=== PATIENT | female | born 1990 | race Caucasian/White ===

== ENCOUNTER 2017-01-28 17:55 | Emergency (ER) | payer MEDICAID ==
[~2017-01-28] VITALS: Ht 162.6 cm; Wt 65.0 kg
[~2017-01-28 17:55] MED LIST: AMOXICILLIN500 MG OR; AMOXICILLIN500 MG PO; CEPHALEXIN500 MG OR; CIPRO500 MG OR; FERROUS SULF325 M1 PO; IBUPROFEN600 MG PO; METRONIDAZOL500 MG PO; NO; NO HOME MEDS; PERI-COLACE1 TAB PO; PRE-NATAL PO; SPRINTEC 2828 DAY OR; SPRINTEC 2828 DAY PO; TUMS500 MG PO; ULTRAM50 M1 PO; ZOFRAN ODT4 MG PO
[2017-01-28] MEDS ORDERED: GENTAMICIN15 ML/BTL OU (18:48)
[2017-01-28] MEDS ORDERED: AMOXICILLIN500 MG PO (18:48)
[2017-01-28 18:55] VITALS: BP 118/72
[2017-01-28 19:17] LABS: INFLUENZA A NONE DETECTED (NONE DETECT); INFLUENZA B NONE DETECTED (NONE DETECT)
== END 2017-01-28 18:55 | disposition home or self-care (01) | DRG 153 ==
LOC: ED 17:55
PROVIDERS: Emergency Medicine
DX: J02.0 Streptococcal pharyngitis (principal); H10.9 Unspecified conjunctivitis; M79.1 Myalgia

== ENCOUNTER 2018-03-03 12:35 | Emergency (ER) | payer OTHER ==
[~2018-03-03] VITALS: Ht 162.6 cm; Wt 70.0 kg
[~2018-03-03 12:35] MED LIST changes: +GENTAMICIN15 ML/BTL OU
[2018-03-03] MEDS ORDERED: MOTRIN800 MG PO (13:54)
[2018-03-03] MEDS ORDERED: AMOXICILLIN500 MG PO (13:54)
[2018-03-03] MEDS ORDERED: TRAMADOL HCL50 MG PO (13:54)
[2018-03-03 14:00] VITALS: BP 129/76
== END 2018-03-03 14:05 | disposition home or self-care (01) | DRG 159 ==
LOC: ED 12:35
DX: K04.7 Periapical abscess without sinus (principal); F17.210 Nicotine dependence, cigarettes, uncomplicated; R51 Headache; J02.9 Acute pharyngitis, unspecified; H92.01 Otalgia, right ear

== ENCOUNTER 2018-05-12 02:27 | Emergency (ER) | payer OTHER ==
[~2018-05-12] VITALS: Ht 165.1 cm; Wt 57.2 kg
[~2018-05-12 02:27] MED LIST changes: +MOTRIN800 MG PO; +TRAMADOL HCL50 MG PO
[2018-05-12 03:29] LABS: INFLUENZA A NONE DETECTED (NONE DETECT); INFLUENZA B NONE DETECTED (NONE DETECT)
[2018-05-12 03:37] LABS: URINE BILIRUBIN - DIPSTICK NEGATIVE (NEGATIVE); URINE BLOOD DIPSTICK LARGE (NEGATIVE); URINE COLOR YELLOW; URINE GLUCOSE - DIPSTICK NEGATIVE (NEGATIVE); URINE KETONE NEGATIVE (NEGATIVE); URINE NITRITE - DIPSTICK NEGATIVE (Negative); URINE PROTEIN - DIPSTICK NEGATIVE (NEG-TRACE); URINE UROBILINOGEN - DIPSTICK 0.2 E.U./dL (0.2)
[2018-05-12 03:42] LABS: URINE CLARITY HAZY; URINE LEUK ESTERASE SMALL (NEGATIVE)
[2018-05-12 03:50] LABS: URINE BACTERIA FEW hpf; URINE RBC 0-2 RBC/hpf (0-5); URINE SQUAMOUS EPITHELIAL CELL FEW EPI/hpf (0-FEW); URINE WBC 0-2 WBC/hpf (0-5)
[2018-05-12] MEDS ORDERED: CEPHALEXIN500 MG PO (04:22)
[2018-05-12] MEDS ORDERED: ROBITUSSIN AC10 ML PO (04:22)
[2018-05-12 04:41] VITALS: BP 116/76
== END 2018-05-12 04:41 | disposition home or self-care (01) | DRG 153 ==
LOC: ED 02:27
PROVIDERS: Emergency Medicine
DX: J06.9 Acute upper respiratory infection, unspecified (principal); F17.210 Nicotine dependence, cigarettes, uncomplicated

== ENCOUNTER 2018-10-27 19:07 | Emergency (ER) | payer OTHER ==
[~2018-10-27] VITALS: Ht 165.1 cm; Wt 59.0 kg
[~2018-10-27 19:07] MED LIST changes: +CEPHALEXIN500 MG PO; +ROBITUSSIN AC10 ML PO
[2018-10-27 19:25] VITALS: BP 117/62
[2018-10-28] MEDS ORDERED: TAM75CAP PO (11:09)
== END 2018-10-27 20:02 | disposition left against medical advice (07) | DRG 951 ==
LOC: ED 19:07 → LWOBS 20:01
DX: Z91.19 Patient's noncompliance with other medical treatment and regimen (principal)

== ENCOUNTER 2018-10-28 09:42 | Emergency (ER) | payer OTHER ==
[~2018-10-28] VITALS: Ht 165.1 cm; Wt 59.1 kg
[2018-10-28] MEDS ORDERED: TAM75CAP PO (11:09)
[2018-10-28 11:24] VITALS: BP 109/59
== END 2018-10-28 11:18 | disposition home or self-care (01) ==
LOC: ED 09:42
DX: J10.1 Influenza due to other identified influenza virus with other respiratory manifestations (principal); R50.9 Fever, unspecified; R05 Cough; R09.81 Nasal congestion; F17.210 Nicotine dependence, cigarettes, uncomplicated

== ENCOUNTER 2018-11-25 20:14 | Emergency (ER) | payer OTHER ==
[~2018-11-25] VITALS: Ht 165.1 cm; Wt 57.0 kg
[~2018-11-25 20:14] MED LIST changes: +TAM75CAP PO
[2018-11-25] MEDS ORDERED: PENICILLN VK500 MG PO (20:55)
[2018-11-25 21:05] VITALS: BP 113/75
== END 2018-11-25 21:05 | disposition home or self-care (01) ==
LOC: ED 20:14
DX: K04.7 Periapical abscess without sinus (principal); K02.9 Dental caries, unspecified; M84.68XA Pathological fracture in other disease, other site, initial encounter for fracture; F17.200 Nicotine dependence, unspecified, uncomplicated

== ENCOUNTER 2018-12-18 18:53 | Emergency (ER) | payer OTHER ==
[~2018-12-18] VITALS: Ht 165.1 cm; Wt 54.5 kg
[~2018-12-18 18:53] MED LIST changes: +PENICILLN VK500 MG PO
[2018-12-18] MEDS ORDERED: IBUPROFEN600 MG PO (20:14)
[2018-12-18] MEDS ORDERED: KEFLEX500 M1 PO (20:14)
[2018-12-18 20:32] VITALS: BP 121/79
== END 2018-12-18 20:33 | disposition home or self-care (01) ==
LOC: ED 18:53
DX: S92.424A Nondisplaced fracture of distal phalanx of right great toe, initial encounter for closed fracture (principal); W22.8XXA Striking against or struck by other objects, initial encounter; Y93.E9 Activity, other interior property and clothing maintenance; Y92.009 Unspecified place in unspecified non-institutional (private) residence as the place of occurrence of the external cause

== ENCOUNTER → 2019-02-02 | Outpatient (REF) | payer OTHER ==
[~2019-02-02] MED LIST changes: +KEFLEX500 M1 PO
[2019-02-02 17:02] LABS: BETA-HCG, QUANT(RESULT NUMBER) <2 mIU/mL
== END | disposition home or self-care (01) ==
LOC: LAB 14:11
DX: Z11.3 Encounter for screening for infections with a predominantly sexual mode of transmission (principal); Z72.51 High risk heterosexual behavior

== ENCOUNTER → 2019-02-03 | Outpatient (REF) | payer OTHER | END | disposition home or self-care (01) | LOC: ULTRASND 14:04 | DX: R10.2 Pelvic and perineal pain (principal) ==

== ENCOUNTER 2019-12-04 | Emergency (ER) | payer SELFPAY ==
[2019-12-04] MEDS ORDERED: TAM75CAP PO (13:24)
== END 2019-12-04 13:25 | disposition home or self-care (01) | DRG 195 ==
DX: J10.1 Influenza due to other identified influenza virus with other respiratory manifestations (principal); F17.210 Nicotine dependence, cigarettes, uncomplicated